=== PATIENT | female | born 1935 | race Caucasian/White ===

== ENCOUNTER 2020-11-04 13:57 | Inpatient (IN) ==
[2020-11-04] MEDS ORDERED: D5% in Water 1,000 ML IVC PRN (16:18)
[2020-11-04] MEDS ORDERED: *HR* Dextrose 50 % in Water (Vial) 50 ML VIAL IVP PRN (16:18)
[2020-11-04] MEDS ORDERED: Dextrose Gel 15 GM/37.5 ML TUBE PO PRN ×2 (16:18)
[2020-11-04] MEDS ORDERED: ESTRADIOL APPL VG PRN (16:51)
[2020-11-04] MEDS: *HR* HYDROcodone/Acet 7.5/325 mg TABLET PO PRN ×2 (17:37→23:35)
[2020-11-04] MEDS: *HR* GlipiZIDE XL (24 HR) 10 MG TABLET PO SCH (17:37)
[2020-11-04] MEDS: Insulin LISPRO 300 UNITS/3 ML VIAL SUBQ SCH ×2 (17:38→22:49)
[2020-11-04] MEDS ORDERED: Insulin DETEMIR 100 UNIT/ML per UNIT SUBQ ONE (21:00)
[2020-11-04] MEDS: Pregabalin 75 MG CAPSULE PO SCH (21:43)
[2020-11-04] MEDS: Nystatin POWDER 30 GM BOTTLE TP SCH (21:44)
[2020-11-05 05:07] LABS: Basophils % 0.4 %; Eosinophils # 0.1 K/mcL (0.0-0.6); Eosinophils % 1.8 %; Hematocrit 39.1 % (35.3-44.9); Hemoglobin 12.2 g/dL (11.5-15.4); Immature Granulocytes % 1.9 % (0-4); Lymphocytes # 2.9 K/mcL (0.6-4.6); Lymphocytes % 36.7 %; Mean Corpuscular HGB Conc 31.2 g/dL (31.6-35.5); Mean Corpuscular Volume 89.7 fL (83.0-100.0); Mean Platelet Volume 9.8 fL (9.4-12.4); Monocytes # 0.8 K/mcL (0.0-1.3); Monocytes % 10.7 %; Neutrophils # 3.8 K/mcL (1.6-8.9); Platelet Count 254 K/mcL (140-400); Red Blood Count 4.36 M/mcL (3.82-4.97); Red Cell Distribution Width 15.2 % (11.5-14.5); Segmented Neutrophils % 48.5 %; White Blood Count 7.8 K/mcL (4.3-11.1)
[2020-11-05 05:22] LABS: BUN/Creatinine Ratio 21 (6-26); Blood Urea Nitrogen 21 mg/dL (8-23); Calcium 8.2 mg/dL (8.6-10.3); Carbon Dioxide 31 mEq/L (23-29); Chloride 106 mEq/L (98-107); Glucose 72 mg/dL (70-105); Osmolality,Calculated 290 (280-300); Potassium 4.2 mEq/L (3.5-5.1); Sodium 139 mEq/L (136-145); eGFR For African Americans > 60 (> 60); eGFR For Non-African Americans 53 (> 60)
[2020-11-05] MEDS: *HR* Enoxaparin 40 MG/0.4 ML SYRINGE SQ SCH (06:09)
[2020-11-05] MEDS: *HR* HYDROcodone/Acet 7.5/325 mg TABLET PO PRN ×3 (06:11→20:55)
[2020-11-05] MEDS: Insulin LISPRO 300 UNITS/3 ML VIAL SUBQ SCH ×4 (08:02→20:18)
[2020-11-05] MEDS: *HR* GlipiZIDE XL (24 HR) 10 MG TABLET PO SCH (08:26)
[2020-11-05] MEDS: Aspirin 81 MG TAB.CHEW PO SCH (08:26)
[2020-11-05] MEDS: Cholecalciferol (D-3) 1,000 UNIT (25MCG) TABLET PO SCH (08:26)
[2020-11-05] MEDS: Pregabalin 75 MG CAPSULE PO SCH ×2 (08:26→20:18)
[2020-11-05] MEDS: Vitamin E 200 UNIT (90MG) CAPSULE PO SCH (08:26)
[2020-11-05] MEDS: *HR* Pioglitazone 15 MG TABLET PO SCH (08:26)
[2020-11-05] MEDS: OMEGA PO SCH (08:27)
[2020-11-05] MEDS: FISH OIL PO SCH (08:27)
[2020-11-05] MEDS: EPA PO SCH (08:27)
[2020-11-05] MEDS: DHA PO SCH (08:27)
[2020-11-05] MEDS: Nystatin POWDER 30 GM BOTTLE TP SCH ×3 (08:28→20:19)
[2020-11-05] MEDS ORDERED: Metoprolol XL (24 HR) Succ 50 MG TAB.ER.24H PO SCH (09:00)
[2020-11-05] MEDS ORDERED: amLODIPine 5 MG TABLET PO SCH (09:00)
[2020-11-05] MEDS: *HR* GlipiZIDE XL (24 HR) 2.5 MG TABLET PO SCH (17:07)
[2020-11-05] MEDS ORDERED: Insulin DETEMIR 100 UNIT/ML X5UNITS SUBQ SCH ×2 (21:00)
[2020-11-06] MEDS: *HR* Enoxaparin 40 MG/0.4 ML SYRINGE SQ SCH (04:43)
[2020-11-06] MEDS: Insulin LISPRO 300 UNITS/3 ML VIAL SUBQ SCH ×4 (08:11→20:04)
[2020-11-06] MEDS: Vitamin E 200 UNIT (90MG) CAPSULE PO SCH (08:12)
[2020-11-06] MEDS: *HR* GlipiZIDE XL (24 HR) 2.5 MG TABLET PO SCH ×2 (08:12→16:56)
[2020-11-06] MEDS: *HR* HYDROcodone/Acet 7.5/325 mg TABLET PO PRN (08:12)
[2020-11-06] MEDS: Aspirin 81 MG TAB.CHEW PO SCH (08:12)
[2020-11-06] MEDS: Metoprolol XL (24 HR) Succ 50 MG TAB.ER.24H PO SCH (08:12)
[2020-11-06] MEDS: Cholecalciferol (D-3) 1,000 UNIT (25MCG) TABLET PO SCH (08:12)
[2020-11-06] MEDS: Pregabalin 75 MG CAPSULE PO SCH ×2 (08:12→20:12)
[2020-11-06] MEDS: EPA PO SCH (08:13)
[2020-11-06] MEDS: Nystatin POWDER 30 GM BOTTLE TP SCH ×3 (08:13→20:04)
[2020-11-06] MEDS: OMEGA PO SCH (08:13)
[2020-11-06] MEDS: DHA PO SCH (08:13)
[2020-11-06] MEDS: FISH OIL PO SCH (08:13)
[2020-11-07] MEDS: *HR* Enoxaparin 40 MG/0.4 ML SYRINGE SQ SCH (05:56)
[2020-11-07] MEDS: *HR* GlipiZIDE XL (24 HR) 2.5 MG TABLET PO SCH ×2 (07:56→16:42)
[2020-11-07] MEDS: Vitamin E 200 UNIT (90MG) CAPSULE PO SCH (07:56)
[2020-11-07] MEDS: Cholecalciferol (D-3) 1,000 UNIT (25MCG) TABLET PO SCH (07:56)
[2020-11-07] MEDS: Pregabalin 75 MG CAPSULE PO SCH ×2 (07:57→20:21)
[2020-11-07] MEDS: Metoprolol XL (24 HR) Succ 50 MG TAB.ER.24H PO SCH (07:57)
[2020-11-07] MEDS: *HR* Pioglitazone 15 MG TABLET PO SCH (07:57)
[2020-11-07] MEDS: Nystatin POWDER 30 GM BOTTLE TP SCH ×3 (07:57→20:24)
[2020-11-07] MEDS: Aspirin 81 MG TAB.CHEW PO SCH (07:57)
[2020-11-07] MEDS: Insulin LISPRO 300 UNITS/3 ML VIAL SUBQ SCH ×4 (07:57→20:22)
[2020-11-07] MEDS: FISH OIL PO SCH (08:19)
[2020-11-07] MEDS: EPA PO SCH (08:19)
[2020-11-07] MEDS: OMEGA PO SCH (08:19)
[2020-11-07] MEDS: DHA PO SCH (08:19)
[2020-11-07] MEDS: *HR* HYDROcodone/Acet 7.5/325 mg TABLET PO PRN (08:20)
[2020-11-07] MEDS ORDERED: 0.9 % Sodium Chloride 500 ML IVC ONE (19:08)
[2020-11-07 19:34] LABS: Hematocrit 37.5 % (35.3-44.9); Hemoglobin 11.7 g/dL (11.5-15.4); Mean Corpuscular HGB Conc 31.2 g/dL (31.6-35.5); Mean Corpuscular Hemoglobin 27.8 pg (28.0-33.3); Mean Corpuscular Volume 89.1 fL (83.0-100.0); Mean Platelet Volume 10.5 fL (9.4-12.4); Platelet Count 201 K/mcL (140-400); Red Blood Count 4.21 M/mcL (3.82-4.97); Red Cell Distribution Width 15.8 % (11.5-14.5); White Blood Count 8.7 K/mcL (4.3-11.1)
[2020-11-07 19:52] LABS: Albumin 3.1 g/dL (3.5-5.7); Albumin/Globulin Ratio 1.3 (1.1-2.2); Bilirubin,Total 0.4 mg/dL (0.3-1.0); Calcium 7.9 mg/dL (8.6-10.3); Globulin 2.3 g/dL (2.4-3.5); Magnesium 1.3 mg/dL (1.6-2.6); Potassium 4.1 mEq/L (3.5-5.1); Total Protein 5.4 g/dL (6.4-8.9)
[2020-11-07 21:44] LABS: Bilirubin,Urine Negative (Negative); Blood,Urine Negative (Negative); Clarity,Urine Clear (Clear); Color,Urine Yellow (Yellow); Glucose,Urine (UA) Normal (Normal); Ketones,Urine Negative (Negative); Leukocyte Esterase,Urine Trace (Negative); Nitrite,Urine Negative (Negative); PH,Urine 6.5 pH Units (5.0-8.0); Protein,Urine Negative (Neg-Trace); Specific Gravity,Urine 1.015 (1.010-1.025); Urobilinogen,Urine Normal (Normal)
[2020-11-07 21:49] LABS: Bacteria,Urine Few per hpf (None-Few); Squamous Epithelial Cell,Urine Few per hpf (None-Few); WBC,Urine 0-3 per hpf (0-3)
[2020-11-07] MEDS: 0.9 % Sodium Chloride 1,000 ML IVC SCH (21:59)
[2020-11-08 05:06] LABS: Hematocrit 37.3 % (35.3-44.9); Hemoglobin 11.7 g/dL (11.5-15.4); Mean Corpuscular HGB Conc 31.4 g/dL (31.6-35.5); Mean Corpuscular Hemoglobin 27.9 pg (28.0-33.3); Mean Platelet Volume 10.8 fL (9.4-12.4); Platelet Count 188 K/mcL (140-400); Red Blood Count 4.19 M/mcL (3.82-4.97); Red Cell Distribution Width 15.9 % (11.5-14.5); White Blood Count 6.6 K/mcL (4.3-11.1)
[2020-11-08] MEDS: *HR* Enoxaparin 40 MG/0.4 ML SYRINGE SQ SCH (05:16)
[2020-11-08 05:25] LABS: Alanine Aminotransferase 13 Units/L (7-52); Albumin/Globulin Ratio 1.3 (1.1-2.2); Alkaline Phosphatase 59 Units/L (34-104); Aspartate Amino Transferase 15 Units/L (13-39); BUN/Creatinine Ratio 19 (6-26); Bilirubin,Total 0.4 mg/dL (0.3-1.0); Blood Urea Nitrogen 16 mg/dL (8-23); Calcium 7.9 mg/dL (8.6-10.3); Carbon Dioxide 26 mEq/L (23-29); Chloride 109 mEq/L (98-107); Globulin 2.3 g/dL (2.4-3.5); Glucose 168 mg/dL (70-105); Magnesium 1.4 mg/dL (1.6-2.6); Osmolality,Calculated 299 (280-300); Potassium 3.9 mEq/L (3.5-5.1); Sodium 142 mEq/L (136-145); Total Protein 5.3 g/dL (6.4-8.9); eGFR For African Americans > 60 (> 60); eGFR For Non-African Americans > 60 (> 60)
[2020-11-08] MEDS: 0.9 % Sodium Chloride 1,000 ML IVC SCH (08:10)
[2020-11-08] MEDS: Aspirin 81 MG TAB.CHEW PO SCH (08:10)
[2020-11-08] MEDS: Cholecalciferol (D-3) 1,000 UNIT (25MCG) TABLET PO SCH (08:10)
[2020-11-08] MEDS: Pregabalin 75 MG CAPSULE PO SCH ×2 (08:10→23:22)
[2020-11-08] MEDS: *HR* GlipiZIDE XL (24 HR) 2.5 MG TABLET PO SCH ×2 (08:11→17:25)
[2020-11-08] MEDS: Metoprolol XL (24 HR) Succ 50 MG TAB.ER.24H PO SCH (08:11)
[2020-11-08] MEDS: Vitamin E 200 UNIT (90MG) CAPSULE PO SCH (08:11)
[2020-11-08] MEDS: DHA PO SCH (08:12)
[2020-11-08] MEDS: FISH OIL PO SCH (08:12)
[2020-11-08] MEDS: EPA PO SCH (08:12)
[2020-11-08] MEDS: OMEGA PO SCH (08:12)
[2020-11-08] MEDS: Nystatin POWDER 30 GM BOTTLE TP SCH ×3 (08:13→23:25)
[2020-11-08] MEDS: Insulin LISPRO 300 UNITS/3 ML VIAL SUBQ SCH ×4 (08:17→23:16)
[2020-11-08] MEDS: *HR* HYDROcodone/Acet 7.5/325 mg TABLET PO PRN (09:45)
[2020-11-08] MEDS ORDERED: *HR* HYDROcodone/Acet 7.5/325 mg TABLET PO PRN (10:50)
[2020-11-08] MEDS ORDERED: Metoprolol XL (24 HR) Succ 25 MG TAB.ER.24H PO ONE (10:52)
[2020-11-08] MEDS ORDERED: Perflutren Lipid Microsphere 1.3 ML in 0.9 % Sodium Chloride 8.7 ML IVP PRN (11:53)
[2020-11-08] MEDS: *HR* OxyCODONE/APAP 5/325 TABLET PO PRN ×2 (14:24→23:17)
[2020-11-08] MEDS: *HR* Rivaroxaban 10 MG TABLET PO SCH (17:25)
[2020-11-09 06:37] LABS: BUN/Creatinine Ratio 17 (6-26); Blood Urea Nitrogen 17 mg/dL (8-23); Carbon Dioxide 26 mEq/L (23-29); Chloride 106 mEq/L (98-107); Glucose 186 mg/dL (70-105); Osmolality,Calculated 294 (280-300); Potassium 3.5 mEq/L (3.5-5.1); Sodium 139 mEq/L (136-145); eGFR For African Americans > 60 (> 60); eGFR For Non-African Americans 51 (> 60)
[2020-11-09] MEDS: Cholecalciferol (D-3) 1,000 UNIT (25MCG) TABLET PO SCH (08:24)
[2020-11-09] MEDS: Aspirin 81 MG TAB.CHEW PO SCH (08:24)
[2020-11-09] MEDS: Vitamin E 200 UNIT (90MG) CAPSULE PO SCH (08:24)
[2020-11-09] MEDS: *HR* OxyCODONE/APAP 5/325 TABLET PO PRN ×2 (08:24→21:49)
[2020-11-09] MEDS: *HR* Pioglitazone 15 MG TABLET PO SCH (08:24)
[2020-11-09] MEDS: Metoprolol XL (24 HR) Succ 50 MG TAB.ER.24H PO SCH (08:24)
[2020-11-09] MEDS: EPA PO SCH (08:25)
[2020-11-09] MEDS: OMEGA PO SCH (08:25)
[2020-11-09] MEDS: Pregabalin 75 MG CAPSULE PO SCH ×2 (08:25→20:04)
[2020-11-09] MEDS: Insulin LISPRO 300 UNITS/3 ML VIAL SUBQ SCH ×4 (08:25→20:00)
[2020-11-09] MEDS: DHA PO SCH (08:25)
[2020-11-09] MEDS: Nystatin POWDER 30 GM BOTTLE TP SCH ×3 (08:25→20:01)
[2020-11-09] MEDS: FISH OIL PO SCH (08:25)
[2020-11-09] MEDS: *HR* GlipiZIDE XL (24 HR) 2.5 MG TABLET PO SCH ×2 (08:25→17:11)
[2020-11-09] MEDS: *HR* Rivaroxaban 10 MG TABLET PO SCH (17:12)
[2020-11-10] MEDS: Insulin LISPRO 300 UNITS/3 ML VIAL SUBQ SCH ×4 (08:05→20:12)
[2020-11-10] MEDS: *HR* GlipiZIDE XL (24 HR) 2.5 MG TABLET PO SCH ×2 (08:06→16:44)
[2020-11-10] MEDS: Metoprolol XL (24 HR) Succ 50 MG TAB.ER.24H PO SCH (08:06)
[2020-11-10] MEDS: Aspirin 81 MG TAB.CHEW PO SCH (08:06)
[2020-11-10] MEDS: Nystatin POWDER 30 GM BOTTLE TP SCH ×3 (08:06→20:13)
[2020-11-10] MEDS: Vitamin E 200 UNIT (90MG) CAPSULE PO SCH (08:06)
[2020-11-10] MEDS: Pregabalin 75 MG CAPSULE PO SCH ×2 (08:06→20:12)
[2020-11-10] MEDS: Cholecalciferol (D-3) 1,000 UNIT (25MCG) TABLET PO SCH (08:06)
[2020-11-10] MEDS: *HR* Rivaroxaban 10 MG TABLET PO SCH (16:44)
[2020-11-10] MEDS: Ondansetron ODT 4 MG TAB.RAPDIS PO PRN (17:33)
[2020-11-10] MEDS: *HR* OxyCODONE/APAP 5/325 TABLET PO PRN (20:12)
[2020-11-11] MEDS: Metoprolol XL (24 HR) Succ 50 MG TAB.ER.24H PO SCH (09:03)
[2020-11-11] MEDS: Aspirin 81 MG TAB.CHEW PO SCH (09:03)
[2020-11-11] MEDS: Pregabalin 75 MG CAPSULE PO SCH ×2 (09:03→21:42)
[2020-11-11] MEDS: *HR* Pioglitazone 15 MG TABLET PO SCH (09:03)
[2020-11-11] MEDS: Cholecalciferol (D-3) 1,000 UNIT (25MCG) TABLET PO SCH (09:03)
[2020-11-11] MEDS: Vitamin E 200 UNIT (90MG) CAPSULE PO SCH (09:03)
[2020-11-11] MEDS: *HR* GlipiZIDE XL (24 HR) 2.5 MG TABLET PO SCH ×2 (09:03→18:21)
[2020-11-11] MEDS: Insulin LISPRO 300 UNITS/3 ML VIAL SUBQ SCH ×4 (09:04→21:44)
[2020-11-11] MEDS: Nystatin POWDER 30 GM BOTTLE TP SCH ×3 (09:04→21:44)
[2020-11-11 11:04] LABS: Basophils % 0.2 %; Eosinophils % 0.1 %; Hematocrit 36.1 % (35.3-44.9); Hemoglobin 11.3 g/dL (11.5-15.4); Immature Granulocytes % 0.6 % (0-4); Lymphocytes % 6.7 %; Mean Corpuscular HGB Conc 31.3 g/dL (31.6-35.5); Mean Corpuscular Hemoglobin 28.3 pg (28.0-33.3); Mean Corpuscular Volume 90.3 fL (83.0-100.0); Mean Platelet Volume 10.6 fL (9.4-12.4); Monocytes # 1.1 K/mcL (0.0-1.3); Monocytes % 7.5 %; Neutrophils # 12.1 K/mcL (1.6-8.9); Platelet Count 179 K/mcL (140-400); Segmented Neutrophils % 84.9 %; White Blood Count 14.2 K/mcL (4.3-11.1)
[2020-11-11 11:13] LABS: BUN/Creatinine Ratio 19 (6-26); Blood Urea Nitrogen 17 mg/dL (8-23); Calcium 8.2 mg/dL (8.6-10.3); Carbon Dioxide 25 mEq/L (23-29); Chloride 104 mEq/L (98-107); Glucose 230 mg/dL (70-105); Magnesium 1.5 mg/dL (1.6-2.6); Osmolality,Calculated 289 (280-300); Potassium 3.8 mEq/L (3.5-5.1); Sodium 135 mEq/L (136-145); eGFR For African Americans > 60 (> 60); eGFR For Non-African Americans > 60 (> 60)
[2020-11-11] MEDS: DilTIAZem CD (24hr) 240 MG CAP.ER.24H PO SCH (12:17)
[2020-11-11] MEDS: *HR* OxyCODONE/APAP 5/325 TABLET PO PRN ×2 (12:17→21:43)
[2020-11-11] MEDS ORDERED: 0.9 % Sodium Chloride 1,000 ML IVC SCH ×2 (13:00→23:30)
[2020-11-11] MEDS: *HR* Rivaroxaban 10 MG TABLET PO SCH (18:21)
[2020-11-11] MEDS: MetroNIDAZOLE 500 MG/100 ML 500 MG/100 ML BAG IVPB SCH (18:24)
[2020-11-11] MEDS: Ondansetron ODT 4 MG TAB.RAPDIS PO PRN (21:42)
[2020-11-12] MEDS ORDERED: 0.9 % Sodium Chloride 1,000 ML IV ONE (00:02)
[2020-11-12] MEDS: MetroNIDAZOLE 500 MG/100 ML 500 MG/100 ML BAG IVPB SCH ×2 (00:50→10:26)
[2020-11-12 05:03] LABS: Basophils % 0.3 %; Eosinophils # 0.1 K/mcL (0.0-0.6); Eosinophils % 0.8 %; Hematocrit 35.4 % (35.3-44.9); Hemoglobin 10.9 g/dL (11.5-15.4); Immature Granulocytes % 0.3 % (0-4); Lymphocytes # 2.1 K/mcL (0.6-4.6); Lymphocytes % 17.2 %; Mean Corpuscular HGB Conc 30.8 g/dL (31.6-35.5); Mean Corpuscular Hemoglobin 28.2 pg (28.0-33.3); Mean Corpuscular Volume 91.7 fL (83.0-100.0); Mean Platelet Volume 10.9 fL (9.4-12.4); Monocytes # 1.2 K/mcL (0.0-1.3); Neutrophils # 8.5 K/mcL (1.6-8.9); Platelet Count 182 K/mcL (140-400); Red Blood Count 3.86 M/mcL (3.82-4.97); Segmented Neutrophils % 71.4 %; White Blood Count 11.9 K/mcL (4.3-11.1)
[2020-11-12 05:19] LABS: BUN/Creatinine Ratio 19 (6-26); Blood Urea Nitrogen 20 mg/dL (8-23); Carbon Dioxide 25 mEq/L (23-29); Chloride 108 mEq/L (98-107); Glucose 142 mg/dL (70-105); Osmolality,Calculated 293 (280-300); Potassium 3.8 mEq/L (3.5-5.1); Sodium 139 mEq/L (136-145); eGFR For African Americans > 60 (> 60); eGFR For Non-African Americans 51 (> 60)
[2020-11-12] MEDS: DilTIAZem CD (24hr) 240 MG CAP.ER.24H PO SCH (08:22)
[2020-11-12] MEDS: Metoprolol XL (24 HR) Succ 50 MG TAB.ER.24H PO SCH (08:22)
[2020-11-12] MEDS: Insulin LISPRO 300 UNITS/3 ML VIAL SUBQ SCH ×2 (08:23→11:26)
[2020-11-12] MEDS ORDERED: 0.9 % Sodium Chloride 500 ML IVC ONE ×3 (08:24→11:09)
[2020-11-12] MEDS: Vitamin E 200 UNIT (90MG) CAPSULE PO SCH (08:26)
[2020-11-12] MEDS: Pregabalin 75 MG CAPSULE PO SCH (08:26)
[2020-11-12] MEDS: Cholecalciferol (D-3) 1,000 UNIT (25MCG) TABLET PO SCH (08:26)
[2020-11-12] MEDS: *HR* GlipiZIDE XL (24 HR) 2.5 MG TABLET PO SCH (08:26)
[2020-11-12] MEDS: Aspirin 81 MG TAB.CHEW PO SCH (08:26)
[2020-11-12] MEDS: Nystatin POWDER 30 GM BOTTLE TP SCH (08:26)
[2020-11-12 11:24] VITALS: BP 96/56
[2020-11-12] MEDS ORDERED: Nitroglycerin 0.4 MG TAB.SUBL SL ONE (12:06)
== END 2020-11-12 12:36 | disposition short-term general hospital (02) | DRG 945 ==
LOC: INPGRE 16:34
PROVIDERS: ADMIT Family Medicine; ATTEND Family Medicine

== ENCOUNTER 2020-11-26 11:39 | Inpatient (IN) ==
[2020-11-26] MEDS ORDERED: *HR* Dextrose 50 % in Water (Vial) 50 ML VIAL IVP PRN (19:04)
[2020-11-26] MEDS ORDERED: Dextrose Gel 15 GM/37.5 ML TUBE PO PRN ×2 (19:04)
[2020-11-26] MEDS ORDERED: D5% in Water 1,000 ML IVC PRN (19:04)
[2020-11-26] MEDS ORDERED: ESTRADIOL APPL VG PRN (19:07)
[2020-11-26] MEDS: Magnesium Oxide 400 MG TABLET PO SCH (20:21)
[2020-11-26] MEDS: Pregabalin 75 MG CAPSULE PO SCH (20:21)
[2020-11-26] MEDS: Metoprolol XL (24 HR) Succ 50 MG TAB.ER.24H PO SCH (20:22)
[2020-11-26] MEDS: Nystatin POWDER 30 GM BOTTLE TP SCH (20:23)
[2020-11-26] MEDS ORDERED: Insulin DETEMIR 100 UNIT/ML per UNIT SUBQ ONE (20:45)
[2020-11-27 04:53] LABS: Basophils % 0.5 %; Eosinophils # 0.2 K/mcL (0.0-0.6); Eosinophils % 2.9 %; Hematocrit 34.4 % (35.3-44.9); Hemoglobin 10.5 g/dL (11.5-15.4); Immature Granulocytes % 1.5 % (0-4); Lymphocytes # 1.6 K/mcL (0.6-4.6); Lymphocytes % 21.3 %; Mean Corpuscular HGB Conc 30.5 g/dL (31.6-35.5); Mean Corpuscular Hemoglobin 27.5 pg (28.0-33.3); Mean Corpuscular Volume 90.1 fL (83.0-100.0); Mean Platelet Volume 10.6 fL (9.4-12.4); Monocytes # 0.9 K/mcL (0.0-1.3); Monocytes % 11.6 %; Neutrophils # 4.7 K/mcL (1.6-8.9); Platelet Count 251 K/mcL (140-400); Red Blood Count 3.82 M/mcL (3.82-4.97); Red Cell Distribution Width 16.1 % (11.5-14.5); Segmented Neutrophils % 62.2 %; White Blood Count 7.5 K/mcL (4.3-11.1)
[2020-11-27 05:09] LABS: BUN/Creatinine Ratio 18 (6-26); Blood Urea Nitrogen 16 mg/dL (8-23); Calcium 8.2 mg/dL (8.6-10.3); Carbon Dioxide 32 mEq/L (23-29); Chloride 99 mEq/L (98-107); Glucose 269 mg/dL (70-105); Osmolality,Calculated 297 (280-300); Potassium 3.8 mEq/L (3.5-5.1); Sodium 138 mEq/L (136-145); eGFR For African Americans > 60 (> 60); eGFR For Non-African Americans 59 (> 60)
[2020-11-27] MEDS: Aspirin 81 MG TAB.CHEW PO SCH (08:00)
[2020-11-27] MEDS: Magnesium Oxide 400 MG TABLET PO SCH ×2 (08:01→20:32)
[2020-11-27] MEDS: Furosemide 20 MG TABLET PO SCH (08:01)
[2020-11-27] MEDS: Pregabalin 75 MG CAPSULE PO SCH ×2 (08:01→20:33)
[2020-11-27] MEDS: Cholecalciferol (D-3) 1,000 UNIT (25MCG) TABLET PO SCH (08:01)
[2020-11-27] MEDS: Nystatin POWDER 30 GM BOTTLE TP SCH ×3 (08:01→20:50)
[2020-11-27] MEDS: Metoprolol XL (24 HR) Succ 50 MG TAB.ER.24H PO SCH ×2 (08:01→20:33)
[2020-11-27] MEDS: DilTIAZem CD (24hr) 180 MG CAP.ER.24H PO SCH (08:01)
[2020-11-27] MEDS: Insulin LISPRO 300 UNITS/3 ML VIAL SUBQ SCH ×3 (08:02→16:27)
[2020-11-27] MEDS: *HR* HYDROcodone/Acet 7.5/325 mg TABLET PO PRN ×2 (08:17→16:39)
[2020-11-27] MEDS: Ondansetron ODT 4 MG TAB.RAPDIS PO PRN ×2 (08:17→16:39)
[2020-11-27] MEDS ORDERED: NON-FORMULARY MEDICATION 1 EACH EACH (Omega-3/Dha/Epa/Fish Oil [Cvs Fish Oil 1,000 Mg Soft PO SCH (09:00)
[2020-11-27] MEDS: *HR* Rivaroxaban 10 MG TABLET PO SCH (16:39)
[2020-11-27] MEDS: Insulin DETEMIR 100 UNIT/ML X5UNITS SUBQ SCH (20:35)
[2020-11-28] MEDS: Cholecalciferol (D-3) 1,000 UNIT (25MCG) TABLET PO SCH (08:13)
[2020-11-28] MEDS: DilTIAZem CD (24hr) 180 MG CAP.ER.24H PO SCH (08:13)
[2020-11-28] MEDS: Insulin LISPRO 300 UNITS/3 ML VIAL SUBQ SCH ×3 (08:13→16:54)
[2020-11-28] MEDS: Magnesium Oxide 400 MG TABLET PO SCH ×2 (08:13→20:18)
[2020-11-28] MEDS: Furosemide 20 MG TABLET PO SCH (08:14)
[2020-11-28] MEDS: Pregabalin 75 MG CAPSULE PO SCH ×2 (08:14→20:22)
[2020-11-28] MEDS: Metoprolol XL (24 HR) Succ 50 MG TAB.ER.24H PO SCH ×2 (08:14→20:19)
[2020-11-28] MEDS: Aspirin 81 MG TAB.CHEW PO SCH (08:14)
[2020-11-28] MEDS: Nystatin POWDER 30 GM BOTTLE TP SCH ×3 (08:29→20:37)
[2020-11-28] MEDS: *HR* HYDROcodone/Acet 7.5/325 mg TABLET PO PRN ×2 (13:05→20:19)
[2020-11-28] MEDS: *HR* Rivaroxaban 10 MG TABLET PO SCH (16:54)
[2020-11-28] MEDS: Insulin DETEMIR 100 UNIT/ML X5UNITS SUBQ SCH (20:29)
[2020-11-29] MEDS: *HR* HYDROcodone/Acet 7.5/325 mg TABLET PO PRN ×2 (08:47→18:16)
[2020-11-29] MEDS: Aspirin 81 MG TAB.CHEW PO SCH (08:47)
[2020-11-29] MEDS: Metoprolol XL (24 HR) Succ 50 MG TAB.ER.24H PO SCH ×2 (08:47→20:08)
[2020-11-29] MEDS: Pregabalin 75 MG CAPSULE PO SCH ×2 (08:47→20:07)
[2020-11-29] MEDS: Furosemide 20 MG TABLET PO SCH (08:47)
[2020-11-29] MEDS: Insulin LISPRO 300 UNITS/3 ML VIAL SUBQ SCH ×3 (08:47→15:55)
[2020-11-29] MEDS: DilTIAZem CD (24hr) 180 MG CAP.ER.24H PO SCH (08:48)
[2020-11-29] MEDS: Nystatin POWDER 30 GM BOTTLE TP SCH ×3 (08:48→20:08)
[2020-11-29] MEDS: Magnesium Oxide 400 MG TABLET PO SCH ×2 (08:48→20:07)
[2020-11-29] MEDS: Cholecalciferol (D-3) 1,000 UNIT (25MCG) TABLET PO SCH (08:48)
[2020-11-29] MEDS: *HR* Rivaroxaban 10 MG TABLET PO SCH (15:55)
[2020-11-29] MEDS: Insulin DETEMIR 100 UNIT/ML X5UNITS SUBQ SCH (20:16)
[2020-11-30] MEDS: *HR* HYDROcodone/Acet 7.5/325 mg TABLET PO PRN (00:17)
[2020-11-30] MEDS: Metoprolol XL (24 HR) Succ 50 MG TAB.ER.24H PO SCH (08:18)
[2020-11-30] MEDS: Aspirin 81 MG TAB.CHEW PO SCH (08:18)
[2020-11-30] MEDS: Magnesium Oxide 400 MG TABLET PO SCH (08:18)
[2020-11-30] MEDS: DilTIAZem CD (24hr) 180 MG CAP.ER.24H PO SCH (08:18)
[2020-11-30] MEDS: Furosemide 20 MG TABLET PO SCH (08:18)
[2020-11-30] MEDS: Cholecalciferol (D-3) 1,000 UNIT (25MCG) TABLET PO SCH (08:18)
[2020-11-30] MEDS: Pregabalin 75 MG CAPSULE PO SCH (08:18)
[2020-11-30] MEDS: Insulin LISPRO 300 UNITS/3 ML VIAL SUBQ SCH ×2 (08:35→11:50)
[2020-11-30 09:20] LABS: Basophils % 0.2 %; Hematocrit 36.4 % (35.3-44.9); Immature Granulocytes % 0.9 % (0-4); Lymphocytes % 8.1 %; Mean Corpuscular HGB Conc 30.2 g/dL (31.6-35.5); Mean Corpuscular Volume 89.4 fL (83.0-100.0); Mean Platelet Volume 10.8 fL (9.4-12.4); Monocytes # 0.8 K/mcL (0.0-1.3); Monocytes % 6.5 %; Neutrophils # 10.3 K/mcL (1.6-8.9); Nucleated Red Blood Cells 0.2 /100 WBC (0); Platelet Count 289 K/mcL (140-400); Red Blood Count 4.07 M/mcL (3.82-4.97); Red Cell Distribution Width 16.2 % (11.5-14.5); Segmented Neutrophils % 84.3 %; White Blood Count 12.2 K/mcL (4.3-11.1)
[2020-11-30 09:33] LABS: Calcium 8.8 mg/dL (8.6-10.3); Potassium 5.6 mEq/L (3.5-5.1)
[2020-11-30] MEDS ORDERED: Furosemide 20 MG/2 ML VIAL IVP ONE ×2 (10:07→12:38)
[2020-11-30] MEDS: Nystatin POWDER 30 GM BOTTLE TP SCH (10:49)
[2020-11-30] MEDS ORDERED: Doxycycline 100 MG in 0.9 % Sodium Chloride Mini Bag 100 ML IVPB SCH (11:00)
[2020-11-30 11:06] VITALS: BP 126/74
[2020-11-30 13:27] LABS: ABG Base Excess 3 mEq/L (-2 to 3); ABG HCO3 30 mEq/L (21-27); ABG Oxygen Saturation 90 % (95-98); ABG PCO2 56 mmHg (35-45); ABG PH 7.34 pH Units (7.32-7.45); ABG PO2 63 mmHg (85-104); ABG TCO2 32 mEq/L (20-26)
[2020-11-30 14:12] LABS: Potassium 5.6 mEq/L (3.5-5.1)
[2020-11-30 14:26] LABS: Troponin I 0.04 ng/mL (< 0.04)
== END 2020-11-30 14:55 | disposition short-term general hospital (02) | DRG 945 ==
LOC: INPGRE 18:14
PROVIDERS: ADMIT Family Medicine; ATTEND Family Medicine

== ENCOUNTER 2020-12-09 13:45 | Inpatient (IN) ==
[2020-12-09] MEDS ORDERED: *HR* Dextrose 50 % in Water (Vial) 50 ML VIAL IVP PRN (18:06)
[2020-12-09] MEDS ORDERED: Dextrose Gel 15 GM/37.5 ML TUBE PO PRN ×2 (18:06)
[2020-12-09] MEDS ORDERED: D5% in Water 1,000 ML IVC PRN (18:06)
[2020-12-09] MEDS ORDERED: Ondansetron ODT 4 MG TAB.RAPDIS PO PRN (18:33)
[2020-12-09] MEDS: Insulin LISPRO 300 UNITS/3 ML VIAL SUBQ SCH (20:38)
[2020-12-09] MEDS: Nystatin POWDER 30 GM BOTTLE TP SCH (20:39)
[2020-12-09] MEDS: *HR* HYDROcodone/Acet 7.5/325 mg TABLET PO PRN (20:39)
[2020-12-09] MEDS: Pregabalin 75 MG CAPSULE PO SCH (20:40)
[2020-12-09] MEDS: Magnesium Oxide 400 MG TABLET PO SCH (20:40)
[2020-12-09] MEDS ORDERED: Insulin DETEMIR 100 UNIT/ML per UNIT SUBQ SCH (21:00)
[2020-12-09] MEDS ORDERED: *HR* Rivaroxaban 10 MG TABLET PO ONE (22:06)
[2020-12-10 05:09] LABS: Basophils # 0.1 K/mcL (0.0-0.2); Basophils % 0.6 %; Eosinophils # 0.3 K/mcL (0.0-0.6); Eosinophils % 3.1 %; Hematocrit 35.7 % (35.3-44.9); Hemoglobin 10.8 g/dL (11.5-15.4); Immature Granulocytes % 0.7 % (0-4); Lymphocytes # 2.1 K/mcL (0.6-4.6); Lymphocytes % 24.9 %; Mean Corpuscular HGB Conc 30.3 g/dL (31.6-35.5); Mean Corpuscular Hemoglobin 26.8 pg (28.0-33.3); Mean Corpuscular Volume 88.6 fL (83.0-100.0); Mean Platelet Volume 10.4 fL (9.4-12.4); Monocytes % 12.5 %; Neutrophils # 4.9 K/mcL (1.6-8.9); Platelet Count 317 K/mcL (140-400); Red Blood Count 4.03 M/mcL (3.82-4.97); Segmented Neutrophils % 58.2 %; White Blood Count 8.3 K/mcL (4.3-11.1)
[2020-12-10 05:23] LABS: BUN/Creatinine Ratio 24 (6-26); Blood Urea Nitrogen 20 mg/dL (8-23); Calcium 8.3 mg/dL (8.6-10.3); Carbon Dioxide 38 mEq/L (23-29); Chloride 93 mEq/L (98-107); Glucose 172 mg/dL (70-105); Osmolality,Calculated 289 (280-300); Potassium 4.2 mEq/L (3.5-5.1); Sodium 136 mEq/L (136-145); eGFR For African Americans > 60 (> 60); eGFR For Non-African Americans > 60 (> 60)
[2020-12-10] MEDS: *HR* HYDROcodone/Acet 7.5/325 mg TABLET PO PRN ×2 (06:15→12:42)
[2020-12-10] MEDS ORDERED: Furosemide 20 MG TABLET PO SCH (08:00)
[2020-12-10] MEDS: Insulin LISPRO 300 UNITS/3 ML VIAL SUBQ SCH ×4 (08:59→21:03)
[2020-12-10] MEDS: Vitamin E 200 UNIT (90MG) CAPSULE PO SCH (09:00)
[2020-12-10] MEDS: Aspirin 81 MG TAB.CHEW PO SCH (09:00)
[2020-12-10] MEDS ORDERED: NON-FORMULARY MEDICATION 1 EACH EACH (Omega-3/Dha/Epa/Fish Oil [Cvs Fish Oil 1,000 Mg Soft PO SCH (09:00)
[2020-12-10] MEDS: Cholecalciferol (D-3) 1,000 UNIT (25MCG) TABLET PO SCH (09:00)
[2020-12-10] MEDS: DilTIAZem CD (24hr) 180 MG CAP.ER.24H PO SCH (09:00)
[2020-12-10] MEDS: Magnesium Oxide 400 MG TABLET PO SCH ×2 (09:00→21:23)
[2020-12-10] MEDS: *HR* Digoxin 0.125 MG TABLET PO SCH (09:01)
[2020-12-10] MEDS: Pregabalin 75 MG CAPSULE PO SCH ×2 (09:01→21:22)
[2020-12-10] MEDS: Nystatin POWDER 30 GM BOTTLE TP SCH ×3 (09:03→21:26)
[2020-12-10] MEDS ORDERED: Hydrocortisone Rectal 2.5% CRM 28 GM TUBE RC PRN (11:24)
[2020-12-10] MEDS: *HR* Rivaroxaban 10 MG TABLET PO SCH (17:20)
[2020-12-10] MEDS ORDERED: Insulin DETEMIR 100 UNIT/ML X5UNITS SUBQ SCH (21:00)
[2020-12-10] MEDS: *HR* LORazepam 0.5 MG TABLET PO PRN (21:22)
[2020-12-10] MEDS: Insulin DETEMIR 100 UNIT/ML X5UNITS SUBQ SCH (21:24)
[2020-12-11] MEDS: Magnesium Oxide 400 MG TABLET PO SCH ×2 (08:39→20:07)
[2020-12-11] MEDS: Aspirin 81 MG TAB.CHEW PO SCH (08:39)
[2020-12-11] MEDS: Vitamin E 200 UNIT (90MG) CAPSULE PO SCH (08:39)
[2020-12-11] MEDS: Pregabalin 75 MG CAPSULE PO SCH ×2 (08:40→20:06)
[2020-12-11] MEDS: Cholecalciferol (D-3) 1,000 UNIT (25MCG) TABLET PO SCH (08:40)
[2020-12-11] MEDS: Insulin LISPRO 300 UNITS/3 ML VIAL SUBQ SCH ×4 (08:41→20:06)
[2020-12-11] MEDS: Nystatin POWDER 30 GM BOTTLE TP SCH ×3 (08:43→20:07)
[2020-12-11] MEDS: Insulin DETEMIR 100 UNIT/ML X5UNITS SUBQ SCH ×2 (08:45→20:10)
[2020-12-11] MEDS: Furosemide 40 MG TABLET PO SCH (09:32)
[2020-12-11] MEDS: DilTIAZem CD (24hr) 180 MG CAP.ER.24H PO SCH (09:32)
[2020-12-11] MEDS: *HR* Digoxin 0.125 MG TABLET PO SCH (09:32)
[2020-12-11] MEDS: *HR* Rivaroxaban 10 MG TABLET PO SCH (16:37)
[2020-12-11] MEDS: *HR* LORazepam 0.5 MG TABLET PO PRN (20:07)
[2020-12-12 01:40] LABS: Bilirubin,Urine Negative (Negative); Blood,Urine Trace-intact (Negative); Clarity,Urine Slightly Cloudy (Clear); Glucose,Urine (UA) Normal (Normal); Ketones,Urine Negative (Negative); Leukocyte Esterase,Urine Small (Negative); Nitrite,Urine Negative (Negative); Protein,Urine 30 mg/dL (Neg-Trace); Specific Gravity,Urine 1.025 (1.010-1.025); Urobilinogen,Urine Normal (Normal)
[2020-12-12 01:46] LABS: Color,Urine Dark Yellow (Yellow); RBC,Urine 0-3 per hpf (0-3); Squamous Epithelial Cell,Urine Few per hpf (None-Few)
[2020-12-12 01:47] LABS: Bacteria,Urine Few per hpf (None-Few)
[2020-12-12] MEDS: *HR* HYDROcodone/Acet 7.5/325 mg TABLET PO PRN ×2 (05:45→22:25)
[2020-12-12] MEDS: Insulin LISPRO 300 UNITS/3 ML VIAL SUBQ SCH ×4 (08:30→21:32)
[2020-12-12] MEDS: DilTIAZem CD (24hr) 180 MG CAP.ER.24H PO SCH (08:31)
[2020-12-12] MEDS: *HR* Digoxin 0.125 MG TABLET PO SCH (08:31)
[2020-12-12] MEDS: Furosemide 40 MG TABLET PO SCH (08:31)
[2020-12-12] MEDS: Cholecalciferol (D-3) 1,000 UNIT (25MCG) TABLET PO SCH (08:31)
[2020-12-12] MEDS: Magnesium Oxide 400 MG TABLET PO SCH ×2 (08:31→21:25)
[2020-12-12] MEDS: Vitamin E 200 UNIT (90MG) CAPSULE PO SCH (08:31)
[2020-12-12] MEDS: Aspirin 81 MG TAB.CHEW PO SCH (08:32)
[2020-12-12] MEDS: Pregabalin 75 MG CAPSULE PO SCH ×2 (08:32→21:25)
[2020-12-12] MEDS: Insulin DETEMIR 100 UNIT/ML X5UNITS SUBQ SCH ×2 (09:16→21:34)
[2020-12-12] MEDS: Nystatin POWDER 30 GM BOTTLE TP SCH ×3 (09:24→21:36)
[2020-12-12 14:20] LABS: Basophils # 0.1 K/mcL (0.0-0.2); Basophils % 0.6 %; Eosinophils # 0.2 K/mcL (0.0-0.6); Eosinophils % 1.5 %; Hematocrit 34.8 % (35.3-44.9); Hemoglobin 10.4 g/dL (11.5-15.4); Immature Granulocytes % 0.8 % (0-4); Lymphocytes # 2.1 K/mcL (0.6-4.6); Lymphocytes % 18.5 %; Mean Corpuscular HGB Conc 29.9 g/dL (31.6-35.5); Mean Corpuscular Hemoglobin 26.7 pg (28.0-33.3); Mean Corpuscular Volume 89.5 fL (83.0-100.0); Mean Platelet Volume 10.2 fL (9.4-12.4); Monocytes # 1.2 K/mcL (0.0-1.3); Monocytes % 10.4 %; Neutrophils # 7.8 K/mcL (1.6-8.9); Platelet Count 371 K/mcL (140-400); Red Blood Count 3.89 M/mcL (3.82-4.97); Red Cell Distribution Width 16.1 % (11.5-14.5); Segmented Neutrophils % 68.2 %; White Blood Count 11.5 K/mcL (4.3-11.1)
[2020-12-12 14:36] LABS: Calcium 8.2 mg/dL (8.6-10.3); Potassium 4.4 mEq/L (3.5-5.1)
[2020-12-12] MEDS: *HR* Rivaroxaban 10 MG TABLET PO SCH (17:48)
[2020-12-12] MEDS: *HR* LORazepam 0.5 MG TABLET PO PRN (22:25)
[2020-12-13] MEDS: *HR* Digoxin 0.125 MG TABLET PO SCH (09:09)
[2020-12-13] MEDS: Cholecalciferol (D-3) 1,000 UNIT (25MCG) TABLET PO SCH (09:09)
[2020-12-13] MEDS: Pregabalin 75 MG CAPSULE PO SCH ×2 (09:09→20:27)
[2020-12-13] MEDS: Magnesium Oxide 400 MG TABLET PO SCH ×2 (09:09→20:27)
[2020-12-13] MEDS: DilTIAZem CD (24hr) 180 MG CAP.ER.24H PO SCH (09:09)
[2020-12-13] MEDS: Furosemide 40 MG TABLET PO SCH (09:10)
[2020-12-13] MEDS: Aspirin 81 MG TAB.CHEW PO SCH (09:10)
[2020-12-13] MEDS: *HR* HYDROcodone/Acet 7.5/325 mg TABLET PO PRN (09:10)
[2020-12-13] MEDS: Vitamin E 200 UNIT (90MG) CAPSULE PO SCH (09:10)
[2020-12-13] MEDS: Insulin LISPRO 300 UNITS/3 ML VIAL SUBQ SCH ×4 (09:10→20:41)
[2020-12-13] MEDS: Nystatin POWDER 30 GM BOTTLE TP SCH ×3 (09:18→20:27)
[2020-12-13] MEDS: Insulin DETEMIR 100 UNIT/ML X5UNITS SUBQ SCH ×2 (09:20→20:44)
[2020-12-13] MEDS: *HR* Rivaroxaban 10 MG TABLET PO SCH (17:35)
[2020-12-14 04:37] LABS: Hematocrit 36.1 % (35.3-44.9); Hemoglobin 10.5 g/dL (11.5-15.4); Mean Corpuscular HGB Conc 29.1 g/dL (31.6-35.5); Mean Corpuscular Hemoglobin 26.4 pg (28.0-33.3); Mean Corpuscular Volume 90.7 fL (83.0-100.0); Mean Platelet Volume 10.4 fL (9.4-12.4); Platelet Count 364 K/mcL (140-400); Red Blood Count 3.98 M/mcL (3.82-4.97); Red Cell Distribution Width 16.1 % (11.5-14.5); White Blood Count 9.9 K/mcL (4.3-11.1)
[2020-12-14 04:55] LABS: Albumin/Globulin Ratio 0.9 (1.1-2.2); Bilirubin,Total 0.6 mg/dL (0.3-1.0); Calcium 8.7 mg/dL (8.6-10.3); Globulin 3.3 g/dL (2.4-3.5); Magnesium 2.4 mg/dL (1.6-2.6); Potassium 5.2 mEq/L (3.5-5.1); Total Protein 6.3 g/dL (6.4-8.9)
[2020-12-14] MEDS: Insulin DETEMIR 100 UNIT/ML X5UNITS SUBQ SCH ×2 (09:46→20:59)
[2020-12-14] MEDS: Magnesium Oxide 400 MG TABLET PO SCH ×2 (09:47→20:58)
[2020-12-14] MEDS: DilTIAZem CD (24hr) 180 MG CAP.ER.24H PO SCH (09:47)
[2020-12-14] MEDS: Vitamin E 200 UNIT (90MG) CAPSULE PO SCH (09:47)
[2020-12-14] MEDS: Insulin LISPRO 300 UNITS/3 ML VIAL SUBQ SCH ×4 (09:47→20:40)
[2020-12-14] MEDS: Cholecalciferol (D-3) 1,000 UNIT (25MCG) TABLET PO SCH (09:47)
[2020-12-14] MEDS: Pregabalin 75 MG CAPSULE PO SCH ×2 (09:48→20:59)
[2020-12-14] MEDS: Furosemide 40 MG TABLET PO SCH (09:48)
[2020-12-14] MEDS: Aspirin 81 MG TAB.CHEW PO SCH (09:48)
[2020-12-14] MEDS: *HR* Digoxin 0.125 MG TABLET PO SCH (09:48)
[2020-12-14] MEDS: Nystatin POWDER 30 GM BOTTLE TP SCH ×3 (09:48→22:22)
[2020-12-14] MEDS: *HR* Rivaroxaban 10 MG TABLET PO SCH (17:17)
[2020-12-14] MEDS: *HR* HYDROcodone/Acet 7.5/325 mg TABLET PO PRN (20:59)
[2020-12-14] MEDS: *HR* LORazepam 0.5 MG TABLET PO PRN (20:59)
[2020-12-15] MEDS: Insulin LISPRO 300 UNITS/3 ML VIAL SUBQ SCH ×4 (07:56→20:37)
[2020-12-15] MEDS: Cholecalciferol (D-3) 1,000 UNIT (25MCG) TABLET PO SCH (09:21)
[2020-12-15] MEDS: Vitamin E 200 UNIT (90MG) CAPSULE PO SCH (09:21)
[2020-12-15] MEDS: Furosemide 40 MG TABLET PO SCH (09:21)
[2020-12-15] MEDS: Pregabalin 75 MG CAPSULE PO SCH ×2 (09:21→20:35)
[2020-12-15] MEDS: *HR* Digoxin 0.125 MG TABLET PO SCH (09:21)
[2020-12-15] MEDS: Aspirin 81 MG TAB.CHEW PO SCH (09:21)
[2020-12-15] MEDS: Nystatin POWDER 30 GM BOTTLE TP SCH (09:21)
[2020-12-15] MEDS: Magnesium Oxide 400 MG TABLET PO SCH ×2 (09:21→20:35)
[2020-12-15] MEDS: DilTIAZem CD (24hr) 180 MG CAP.ER.24H PO SCH (09:21)
[2020-12-15] MEDS: Insulin DETEMIR 100 UNIT/ML X5UNITS SUBQ SCH ×2 (09:38→20:37)
[2020-12-15 11:57] LABS: Hematocrit 35.8 % (35.3-44.9); Hemoglobin 10.4 g/dL (11.5-15.4); Mean Corpuscular HGB Conc 29.1 g/dL (31.6-35.5); Mean Corpuscular Hemoglobin 26.4 pg (28.0-33.3); Mean Corpuscular Volume 90.9 fL (83.0-100.0); Mean Platelet Volume 10.2 fL (9.4-12.4); Platelet Count 383 K/mcL (140-400); Red Blood Count 3.94 M/mcL (3.82-4.97); White Blood Count 8.9 K/mcL (4.3-11.1)
[2020-12-15 12:15] LABS: Calcium 8.5 mg/dL (8.6-10.3); Magnesium 2.3 mg/dL (1.6-2.6); Potassium 5.1 mEq/L (3.5-5.1)
[2020-12-15] MEDS ORDERED: Nystatin POWDER 30 GM BOTTLE TP PRN (13:02)
[2020-12-15] MEDS: *HR* Rivaroxaban 10 MG TABLET PO SCH (17:00)
[2020-12-15] MEDS: *HR* HYDROcodone/Acet 7.5/325 mg TABLET PO PRN (20:35)
[2020-12-16] MEDS: Insulin LISPRO 300 UNITS/3 ML VIAL SUBQ SCH ×4 (09:07→20:11)
[2020-12-16] MEDS: Furosemide 40 MG TABLET PO SCH (10:30)
[2020-12-16] MEDS: Magnesium Oxide 400 MG TABLET PO SCH ×2 (10:30→20:09)
[2020-12-16] MEDS: *HR* HYDROcodone/Acet 7.5/325 mg TABLET PO PRN ×2 (10:30→20:09)
[2020-12-16] MEDS: Vitamin E 200 UNIT (90MG) CAPSULE PO SCH (10:30)
[2020-12-16] MEDS: Insulin DETEMIR 100 UNIT/ML X5UNITS SUBQ SCH ×2 (10:30→20:11)
[2020-12-16] MEDS: Aspirin 81 MG TAB.CHEW PO SCH (10:30)
[2020-12-16] MEDS: *HR* Digoxin 0.125 MG TABLET PO SCH (10:30)
[2020-12-16] MEDS: DilTIAZem CD (24hr) 180 MG CAP.ER.24H PO SCH (10:30)
[2020-12-16] MEDS: Pregabalin 75 MG CAPSULE PO SCH ×2 (10:30→20:08)
[2020-12-16] MEDS: Cholecalciferol (D-3) 1,000 UNIT (25MCG) TABLET PO SCH (10:30)
[2020-12-16] MEDS: *HR* Rivaroxaban 10 MG TABLET PO SCH (17:01)
[2020-12-17 05:00] LABS: Hematocrit 34.1 % (35.3-44.9); Mean Corpuscular HGB Conc 29.3 g/dL (31.6-35.5); Mean Corpuscular Hemoglobin 26.4 pg (28.0-33.3); Mean Platelet Volume 10.7 fL (9.4-12.4); Platelet Count 314 K/mcL (140-400); Red Blood Count 3.79 M/mcL (3.82-4.97); Red Cell Distribution Width 16.3 % (11.5-14.5); White Blood Count 8.1 K/mcL (4.3-11.1)
[2020-12-17 05:13] LABS: BUN/Creatinine Ratio 54 (6-26); Blood Urea Nitrogen 54 mg/dL (8-23); Calcium 8.4 mg/dL (8.6-10.3); Carbon Dioxide 39 mEq/L (23-29); Chloride 97 mEq/L (98-107); Glucose 64 mg/dL (70-105); Osmolality,Calculated 301 (280-300); Potassium 4.9 mEq/L (3.5-5.1); Sodium 139 mEq/L (136-145); eGFR For African Americans > 60 (> 60); eGFR For Non-African Americans 53 (> 60)
[2020-12-17] MEDS: Insulin LISPRO 300 UNITS/3 ML VIAL SUBQ SCH ×4 (09:01→19:47)
[2020-12-17] MEDS: Insulin DETEMIR 100 UNIT/ML X5UNITS SUBQ SCH ×2 (09:02→19:58)
[2020-12-17] MEDS: Magnesium Oxide 400 MG TABLET PO SCH ×2 (09:21→19:55)
[2020-12-17] MEDS: Cholecalciferol (D-3) 1,000 UNIT (25MCG) TABLET PO SCH (09:21)
[2020-12-17] MEDS: Pregabalin 75 MG CAPSULE PO SCH ×2 (09:21→19:55)
[2020-12-17] MEDS: Aspirin 81 MG TAB.CHEW PO SCH (09:21)
[2020-12-17] MEDS: *HR* Digoxin 0.125 MG TABLET PO SCH (09:21)
[2020-12-17] MEDS: Vitamin E 200 UNIT (90MG) CAPSULE PO SCH (09:21)
[2020-12-17] MEDS: Furosemide 40 MG TABLET PO SCH (09:22)
[2020-12-17] MEDS: DilTIAZem CD (24hr) 180 MG CAP.ER.24H PO SCH (09:22)
[2020-12-17] MEDS: *HR* Rivaroxaban 10 MG TABLET PO SCH (17:09)
[2020-12-17] MEDS: *HR* HYDROcodone/Acet 7.5/325 mg TABLET PO PRN (17:13)
[2020-12-18] MEDS: Insulin LISPRO 300 UNITS/3 ML VIAL SUBQ SCH ×4 (09:56→21:54)
[2020-12-18] MEDS: *HR* Digoxin 0.125 MG TABLET PO SCH (09:57)
[2020-12-18] MEDS: Furosemide 40 MG TABLET PO SCH (09:57)
[2020-12-18] MEDS: Pregabalin 75 MG CAPSULE PO SCH ×2 (09:57→21:48)
[2020-12-18] MEDS: Aspirin 81 MG TAB.CHEW PO SCH (09:57)
[2020-12-18] MEDS: Magnesium Oxide 400 MG TABLET PO SCH ×2 (09:57→21:53)
[2020-12-18] MEDS: Cholecalciferol (D-3) 1,000 UNIT (25MCG) TABLET PO SCH (09:58)
[2020-12-18] MEDS: Vitamin E 200 UNIT (90MG) CAPSULE PO SCH (09:58)
[2020-12-18] MEDS: DilTIAZem CD (24hr) 180 MG CAP.ER.24H PO SCH (09:58)
[2020-12-18] MEDS: Insulin DETEMIR 100 UNIT/ML X5UNITS SUBQ SCH ×2 (10:06→22:04)
[2020-12-18 10:15] LABS: Hematocrit 35.5 % (35.3-44.9); Hemoglobin 10.2 g/dL (11.5-15.4); Mean Corpuscular HGB Conc 28.7 g/dL (31.6-35.5); Mean Corpuscular Hemoglobin 25.9 pg (28.0-33.3); Mean Corpuscular Volume 90.1 fL (83.0-100.0); Mean Platelet Volume 10.8 fL (9.4-12.4); Platelet Count 319 K/mcL (140-400); Red Blood Count 3.94 M/mcL (3.82-4.97); Red Cell Distribution Width 16.5 % (11.5-14.5); White Blood Count 8.2 K/mcL (4.3-11.1)
[2020-12-18 10:42] LABS: Calcium 8.4 mg/dL (8.6-10.3); Magnesium 2.4 mg/dL (1.6-2.6); Potassium 5.3 mEq/L (3.5-5.1)
[2020-12-18] MEDS: *HR* HYDROcodone/Acet 7.5/325 mg TABLET PO PRN ×2 (10:59→21:53)
[2020-12-18 13:54] LABS: Adenovirus Not Detected (Not Detect); Bordetella Pertussis Not Detected (Not Detect); Chlamydophila pneumoniae Not Detected (Not Detect); Coronavirus 229E Not Detected (Not Detect); Coronavirus HKU1 Not Detected (Not Detect); Coronavirus NL63 Not Detected (Not Detect); Coronavirus OC43 Not Detected (Not Detect); Human Metapneumovirus Not Detected (Not Detect); Human Rhinovirus/Enterovirus Not Detected (Not Detect); Influenza A Subtype 2009 H1 Not Detected (Not Detect); Influenza B Not Detected (Not Detect); Mycoplasma pneumoniae Not Detected (Not Detect); Parainfluenza Virus 1 Not Detected (Not Detect); Parainfluenza Virus 2 Not Detected (Not Detect); Parainfluenza Virus 3 Not Detected (Not Detect); Parainfluenza Virus 4 Not Detected (Not Detect); Respiratory Syncytial Virus Not Detected (Not Detect)
[2020-12-18] MEDS: *HR* Rivaroxaban 10 MG TABLET PO SCH (16:20)
[2020-12-19] MEDS: Insulin LISPRO 300 UNITS/3 ML VIAL SUBQ SCH ×4 (09:07→21:53)
[2020-12-19] MEDS: Aspirin 81 MG TAB.CHEW PO SCH (09:14)
[2020-12-19] MEDS: Vitamin E 200 UNIT (90MG) CAPSULE PO SCH (09:15)
[2020-12-19] MEDS: Cholecalciferol (D-3) 1,000 UNIT (25MCG) TABLET PO SCH (09:15)
[2020-12-19] MEDS: Pregabalin 75 MG CAPSULE PO SCH ×2 (09:15→21:49)
[2020-12-19] MEDS: Magnesium Oxide 400 MG TABLET PO SCH ×2 (09:15→21:49)
[2020-12-19] MEDS: DilTIAZem CD (24hr) 180 MG CAP.ER.24H PO SCH (09:16)
[2020-12-19] MEDS: Furosemide 40 MG TABLET PO SCH (09:17)
[2020-12-19] MEDS: Insulin DETEMIR 100 UNIT/ML X5UNITS SUBQ SCH ×2 (09:32→21:57)
[2020-12-19] MEDS: DilTIAZem CD (24hr) 240 MG CAP.ER.24H PO SCH (10:03)
[2020-12-19] MEDS: *HR* Rivaroxaban 10 MG TABLET PO SCH (17:32)
[2020-12-20] MEDS: *HR* HYDROcodone/Acet 7.5/325 mg TABLET PO PRN (04:57)
[2020-12-20 05:48] LABS: Hematocrit 35.6 % (35.3-44.9); Hemoglobin 10.2 g/dL (11.5-15.4); Mean Corpuscular HGB Conc 28.7 g/dL (31.6-35.5); Mean Corpuscular Volume 90.8 fL (83.0-100.0); Mean Platelet Volume 10.7 fL (9.4-12.4); Platelet Count 264 K/mcL (140-400); Red Blood Count 3.92 M/mcL (3.82-4.97); Red Cell Distribution Width 16.7 % (11.5-14.5); White Blood Count 6.7 K/mcL (4.3-11.1)
[2020-12-20 06:21] LABS: BUN/Creatinine Ratio 49 (6-26); Blood Urea Nitrogen 40 mg/dL (8-23); Calcium 8.2 mg/dL (8.6-10.3); Carbon Dioxide 44 mEq/L (23-29); Chloride 96 mEq/L (98-107); Glucose 140 mg/dL (70-105); Magnesium 2.3 mg/dL (1.6-2.6); Osmolality,Calculated 306 (280-300); Potassium 4.3 mEq/L (3.5-5.1); Sodium 142 mEq/L (136-145); eGFR For African Americans > 60 (> 60); eGFR For Non-African Americans > 60 (> 60)
[2020-12-20] MEDS: Insulin LISPRO 300 UNITS/3 ML VIAL SUBQ SCH ×4 (09:00→22:55)
[2020-12-20] MEDS: Cholecalciferol (D-3) 1,000 UNIT (25MCG) TABLET PO SCH (09:00)
[2020-12-20] MEDS: DilTIAZem CD (24hr) 240 MG CAP.ER.24H PO SCH (09:00)
[2020-12-20] MEDS: Pregabalin 75 MG CAPSULE PO SCH ×2 (09:00→22:51)
[2020-12-20] MEDS: Magnesium Oxide 400 MG TABLET PO SCH ×2 (09:01→22:51)
[2020-12-20] MEDS: Insulin DETEMIR 100 UNIT/ML X5UNITS SUBQ SCH ×2 (09:07→22:53)
[2020-12-20] MEDS: Aspirin 81 MG TAB.CHEW PO SCH (09:07)
[2020-12-20] MEDS: Vitamin E 200 UNIT (90MG) CAPSULE PO SCH (09:07)
[2020-12-20] MEDS: acetaZOLAMIDE 250 MG TABLET PO SCH (13:16)
[2020-12-20] MEDS: *HR* Rivaroxaban 10 MG TABLET PO SCH (17:43)
[2020-12-20 21:19] LABS: Bilirubin,Urine Negative (Negative); Blood,Urine Negative (Negative); Clarity,Urine Clear (Clear); Color,Urine Yellow (Yellow); Glucose,Urine (UA) Normal (Normal); Ketones,Urine Negative (Negative); Leukocyte Esterase,Urine Negative (Negative); Nitrite,Urine Negative (Negative); PH,Urine 7.5 pH Units (5.0-8.0); Protein,Urine 30 mg/dL (Neg-Trace); Specific Gravity,Urine 1.015 (1.010-1.025)
[2020-12-20 21:28] LABS: Bacteria,Urine None Seen per hpf (None-Few); RBC,Urine 0-3 per hpf (0-3); Squamous Epithelial Cell,Urine Few per hpf (None-Few); WBC,Urine 0-3 per hpf (0-3)
[2020-12-21] MEDS: Insulin LISPRO 300 UNITS/3 ML VIAL SUBQ SCH ×4 (10:09→21:37)
[2020-12-21] MEDS: 0.9 % Sodium Chloride 1,000 ML IVC SCH (10:33)
[2020-12-21] MEDS: *HR* Digoxin 0.125 MG TABLET PO SCH (10:35)
[2020-12-21] MEDS: DilTIAZem CD (24hr) 240 MG CAP.ER.24H PO SCH (10:36)
[2020-12-21] MEDS: Pregabalin 75 MG CAPSULE PO SCH ×2 (10:36→21:23)
[2020-12-21] MEDS: Aspirin 81 MG TAB.CHEW PO SCH (10:36)
[2020-12-21] MEDS: Furosemide 40 MG TABLET PO SCH (10:36)
[2020-12-21] MEDS: Magnesium Oxide 400 MG TABLET PO SCH ×2 (10:36→21:10)
[2020-12-21] MEDS: Cholecalciferol (D-3) 1,000 UNIT (25MCG) TABLET PO SCH (10:36)
[2020-12-21] MEDS: acetaZOLAMIDE 250 MG TABLET PO SCH (10:36)
[2020-12-21] MEDS: Vitamin E 200 UNIT (90MG) CAPSULE PO SCH (10:36)
[2020-12-21] MEDS: Insulin DETEMIR 100 UNIT/ML X5UNITS SUBQ SCH ×2 (10:49→21:36)
[2020-12-21] MEDS ORDERED: Furosemide 20 MG/2 ML VIAL IVP ONE (15:45)
[2020-12-21] MEDS: *HR* Rivaroxaban 10 MG TABLET PO SCH (17:43)
[2020-12-21] MEDS: Ipratropium/Albuterol Neb 3 ML IH SCH ×2 (18:10→22:49)
[2020-12-21] MEDS: *HR* HYDROcodone/Acet 7.5/325 mg TABLET PO PRN (21:23)
[2020-12-22] MEDS: 0.9 % Sodium Chloride 1,000 ML IVC SCH ×2 (03:26→18:43)
[2020-12-22] MEDS: Ipratropium/Albuterol Neb 3 ML IH SCH ×4 (04:07→22:23)
[2020-12-22 05:45] LABS: Hematocrit 33.2 % (35.3-44.9); Hemoglobin 9.2 g/dL (11.5-15.4); Mean Corpuscular HGB Conc 27.7 g/dL (31.6-35.5); Mean Corpuscular Hemoglobin 25.8 pg (28.0-33.3); Mean Corpuscular Volume 93.3 fL (83.0-100.0); Platelet Count 237 K/mcL (140-400); Red Blood Count 3.56 M/mcL (3.82-4.97); Red Cell Distribution Width 16.6 % (11.5-14.5); White Blood Count 9.5 K/mcL (4.3-11.1)
[2020-12-22 06:22] LABS: Alanine Aminotransferase 13 Units/L (7-52); Albumin 2.8 g/dL (3.5-5.7); Alkaline Phosphatase 64 Units/L (34-104); Aspartate Amino Transferase 16 Units/L (13-39); BUN/Creatinine Ratio 35 (6-26); Bilirubin,Total 0.5 mg/dL (0.3-1.0); Blood Urea Nitrogen 37 mg/dL (8-23); Calcium 8.2 mg/dL (8.6-10.3); Carbon Dioxide 41 mEq/L (23-29); Chloride 96 mEq/L (98-107); Globulin 2.7 g/dL (2.4-3.5); Glucose 176 mg/dL (70-105); Magnesium 2.3 mg/dL (1.6-2.6); Osmolality,Calculated 303 (280-300); Potassium 4.7 mEq/L (3.5-5.1); Sodium 140 mEq/L (136-145); Total Protein 5.5 g/dL (6.4-8.9); eGFR For African Americans > 60 (> 60); eGFR For Non-African Americans 50 (> 60)
[2020-12-22] MEDS: DilTIAZem CD (24hr) 240 MG CAP.ER.24H PO SCH (09:05)
[2020-12-22] MEDS: acetaZOLAMIDE 250 MG TABLET PO SCH (09:05)
[2020-12-22] MEDS: Furosemide 40 MG TABLET PO SCH (09:05)
[2020-12-22] MEDS: *HR* Digoxin 0.125 MG TABLET PO SCH (09:05)
[2020-12-22] MEDS: Pregabalin 75 MG CAPSULE PO SCH ×2 (09:05→20:38)
[2020-12-22] MEDS: Aspirin 81 MG TAB.CHEW PO SCH (09:05)
[2020-12-22] MEDS: Magnesium Oxide 400 MG TABLET PO SCH ×2 (09:06→20:38)
[2020-12-22] MEDS: Vitamin E 200 UNIT (90MG) CAPSULE PO SCH (09:06)
[2020-12-22] MEDS: Insulin DETEMIR 100 UNIT/ML X5UNITS SUBQ SCH ×2 (09:06→21:07)
[2020-12-22] MEDS: Cholecalciferol (D-3) 1,000 UNIT (25MCG) TABLET PO SCH (09:06)
[2020-12-22] MEDS: Insulin LISPRO 300 UNITS/3 ML VIAL SUBQ SCH ×4 (09:06→21:10)
[2020-12-22] MEDS: *HR* HYDROcodone/Acet 7.5/325 mg TABLET PO PRN (11:32)
[2020-12-22] MEDS: *HR* Rivaroxaban 10 MG TABLET PO SCH (17:16)
[2020-12-23] MEDS: Ipratropium/Albuterol Neb 3 ML IH SCH ×4 (04:41→21:49)
[2020-12-23] MEDS: Aspirin 81 MG TAB.CHEW PO SCH (09:42)
[2020-12-23] MEDS: Pregabalin 75 MG CAPSULE PO SCH ×2 (09:42→19:58)
[2020-12-23] MEDS: DilTIAZem CD (24hr) 240 MG CAP.ER.24H PO SCH (09:42)
[2020-12-23] MEDS: acetaZOLAMIDE 250 MG TABLET PO SCH (09:42)
[2020-12-23] MEDS: Furosemide 40 MG TABLET PO SCH (09:42)
[2020-12-23] MEDS: *HR* Digoxin 0.125 MG TABLET PO SCH (09:42)
[2020-12-23] MEDS: Insulin DETEMIR 100 UNIT/ML X5UNITS SUBQ SCH ×2 (09:58→20:32)
[2020-12-23] MEDS: Magnesium Oxide 400 MG TABLET PO SCH ×2 (09:58→19:58)
[2020-12-23] MEDS: Vitamin E 200 UNIT (90MG) CAPSULE PO SCH (09:58)
[2020-12-23] MEDS: Insulin LISPRO 300 UNITS/3 ML VIAL SUBQ SCH ×4 (09:58→20:32)
[2020-12-23] MEDS: Cholecalciferol (D-3) 1,000 UNIT (25MCG) TABLET PO SCH (09:58)
[2020-12-23] MEDS: 0.9 % Sodium Chloride 1,000 ML IVC SCH (11:23)
[2020-12-23] MEDS: *HR* Rivaroxaban 10 MG TABLET PO SCH (17:07)
[2020-12-24] MEDS ORDERED: *HR* LORazepam 2 MG/ML VIAL IVP ONE (01:19)
[2020-12-24] MEDS: Ipratropium/Albuterol Neb 3 ML IH SCH ×4 (03:50→21:53)
[2020-12-24] MEDS: Insulin LISPRO 300 UNITS/3 ML VIAL SUBQ SCH ×4 (09:10→21:31)
[2020-12-24] MEDS: DilTIAZem CD (24hr) 240 MG CAP.ER.24H PO SCH (09:20)
[2020-12-24] MEDS: Aspirin 81 MG TAB.CHEW PO SCH (09:20)
[2020-12-24] MEDS: Furosemide 40 MG TABLET PO SCH (09:21)
[2020-12-24] MEDS: acetaZOLAMIDE 250 MG TABLET PO SCH (09:21)
[2020-12-24] MEDS: *HR* Digoxin 0.125 MG TABLET PO SCH (09:21)
[2020-12-24] MEDS: Insulin DETEMIR 100 UNIT/ML X5UNITS SUBQ SCH (09:21)
[2020-12-24] MEDS: Cholecalciferol (D-3) 1,000 UNIT (25MCG) TABLET PO SCH (09:22)
[2020-12-24] MEDS: Magnesium Oxide 400 MG TABLET PO SCH (09:22)
[2020-12-24] MEDS: Vitamin E 200 UNIT (90MG) CAPSULE PO SCH (09:22)
[2020-12-24] MEDS: *HR* Rivaroxaban 10 MG TABLET PO SCH (16:43)
[2020-12-25] MEDS: Ipratropium/Albuterol Neb 3 ML IH SCH ×3 (04:28→17:01)
[2020-12-25] MEDS: Insulin LISPRO 300 UNITS/3 ML VIAL SUBQ SCH ×3 (08:16→16:38)
[2020-12-25] MEDS: DilTIAZem CD (24hr) 240 MG CAP.ER.24H PO SCH (08:27)
[2020-12-25] MEDS: *HR* Digoxin 0.125 MG TABLET PO SCH (08:27)
[2020-12-25] MEDS: Aspirin 81 MG TAB.CHEW PO SCH (08:27)
[2020-12-25] MEDS: *HR* LORazepam 0.5 MG TABLET PO PRN ×2 (14:11→18:40)
[2020-12-25] MEDS: *HR* Rivaroxaban 10 MG TABLET PO SCH (16:38)
[2020-12-25 19:25] VITALS: BP 111/58
== END 2020-12-25 19:26 | disposition hospice, home (50) | DRG 945 ==
LOC: INPGRE 16:56
PROVIDERS: ADMIT Family Medicine; ATTEND Family Medicine